=== PATIENT | male | born 1950 | race Two or more races ===

== ENCOUNTER 2021-08-11 08:00 | Outpatient (RCR) | payer MEDICARE, SELFPAY | END 2021-08-19 14:36 | disposition home or self-care (01) | LOC: HO.WCC 08:00 | PROVIDERS: PCP Internal Medicine; Referring Provider Surgery; Visit Provider Surgery | DX: Z09 Encounter for follow-up examination after completed treatment for conditions other than malignant neoplasm (principal); K62.7 Radiation proctitis; I10 Essential (primary) hypertension | CPT/HCPCS: 99212 ==